=== PATIENT | female | born 1990 | race Caucasian/White ===

== ENCOUNTER 2016-11-24 16:58 | Emergency (ER) | payer OTHER, BC | END 2016-11-24 20:29 | disposition home or self-care (01) | LOC: ER1 16:58 | DX: L02.411 Cutaneous abscess of right axilla (principal) | CPT/HCPCS: 10060; 87070; 87205; 99283 ==

== ENCOUNTER 2016-11-26 18:51 | Emergency (ER) | payer OTHER, BC ==
[2016-11-26 20:40] LABS: HEMOGLOBIN 13.7 gm/dl (12.3-15.3); RED BLOOD COUNT 4.9 M/UL (4.00-5.10); WHITE BLOOD COUNT 5.3 K/UL (4.5-11.0)
[2016-11-26 20:55] LABS: BUN/CREATININE RATIO 13 (0-10)
== END 2016-11-26 22:05 | disposition home or self-care (01) ==
LOC: ER1 18:51
PROVIDERS: Physician Assistant Medical
DX: L02.411 Cutaneous abscess of right axilla (principal); R79.89 Other specified abnormal findings of blood chemistry; Z88.1 Allergy status to other antibiotic agents
CPT/HCPCS: 36415; 80053; 81001; 84703; 85025; 99283